=== PATIENT | female | born 1955 ===

== ENCOUNTER 2017-07-21 13:08 | Emergency (ER) | payer OTHER ==
[2017-07-21 13:19] VITALS: BP 148/72; PULSE 92; RESP 16; TEMP 98.6; O2SAT 99
[2017-07-21 14:35] LABS: SQUAMOUS EPITHIAL 1 /hpf (0-5); URINE BILIRUBIN NEGATIVE (NEGATIVE); URINE BLOOD NEGATIVE (NEGATIVE); URINE CLARITY CLEAR (Clear); URINE COLOR YELLOW (YELLOW); URINE GLUCOSE (UA) NEG (Normal); URINE LEUKOCYTE ESTERASE NEG Leu/uL (Negative); URINE NITRATE NEGATIVE (NEGATIVE); URINE PROTEIN NEGATIVE (NEGATIVE); URINE UROBILINOGEN 0.2-1.0 mg/dL (0.2-1.0)
--- NOTE | 2017-07-21 14:52 | ED PDOC ---
HPI: General Adult Time Seen by Provider: 07/21/17 13:28 Chief Complaint (Nursing): Flu-like Symptoms Chief Complaint (Provider): Flu-like Symptoms History Per: Patient History/Exam Limitations: no limitations Onset/Duration Of Symptoms: Days (x2 weeks) Current Symptoms Are (Timing): Still Present Additional Complaint(s): 62 year old female a past medical history of HTN and hypothyroidism, who presents to the ED with an influenza-like illness x2 weeks. Patient states she developed a cough with phlegm, mild rhinorrhea, chills and body aches 2 weeks ago. States her symptoms persistent and yesterday she had 2 episodes of non- bilious, non-bloody vomiting and 1 episode of diarrhea. Also reports 1 episode of vomiting this morning, but she has tolerated PO since. States she has only taken OTC cough medication for her symptoms. Says that 4 days prior to the onset of her symptoms she arrived here from the [facility]. PMD: None in the [place] Past Medical History Reviewed: Historical Data, Nursing Documentation, Vital Signs Vital Signs: Last Vital Signs Temp 98.6 F 07/21/17 13:16 Pulse 92 H 07/21/17 13:16 Resp 16 07/21/17 13:16 BP 148/72 07/21/17 13:16 Pulse Ox 99 07/21/17 15:17 - Medical History PMH: HTN, Hypothyroidism - Surgical History Surgical History: (x2) - Family History Family History: States: Hypertension - Social History Current smoker - smoking cessation education provided: No Alcohol: None Drugs: Denies - Home Medications Home Medications: Ambulatory Orders Medication Instructions Recorded Ondansetron ODT [Zofran ODT] 1 odt PO Q6 PRN #20 odt 07/21/17 Promethazine DM [Phenergan DM 10 ml PO Q6 PRN #120 ml 07/21/17 Syrup] - Allergies Allergies/Adverse Reactions: Allergies Allergy/AdvReac Type Severity Reaction Status Date / Time No Known Allergies Allergy Verified 07/21/17 13:16 Review of Systems ROS Statement: Except As Marked, All Systems Reviewed And Found Negative Constitutional: Positive for: Chills, Other (body aches) ENT: Positive for: Nose Discharge Respiratory: Positive for: Cough, Sputum Gastrointestinal: Positive for: Vomiting, Diarrhea Physical Exam - Reviewed Nursing Documentation Reviewed: Yes Vital Signs Reviewed: Yes - Physical Exam Appears: Positive for: Non-toxic, No Acute Distress Head Exam: Positive for: ATRAUMATIC, NORMOCEPHALIC Skin: Positive for: Warm, Dry Eye Exam: Positive for: EOMI, PERRL ENT: Negative for: Pharyngeal Erythema, Tonsillar Exudate, Tonsillar Swelling Neck: Positive for: Painless ROM, Supple Cardiovascular/Chest: Positive for: Regular Rate, Rhythm. Negative for: Murmur Respiratory: Positive for: Normal Breath Sounds. Negative for: Accessory Muscle Use, Rales, Wheezing, Respiratory Distress Gastrointestinal/Abdominal: Positive for: Soft. Negative for: Tenderness Back: Positive for: Normal Inspection. Negative for: Decreased ROM Extremity: Positive for: Normal ROM. Negative for: Pedal Edema, Deformity Lymphatic: Negative for: Adenopathy (cervical) Neurologic/Psych: Positive for: Alert. Negative for: Motor/Sensory Deficits - ECG O2 Sat by Pulse Oximetry: 99 (RA) Pulse Ox Interpretation: Normal Medical Decision Making Medical Decision Making: Time: 13:51 Initial Impression: Viral syndrome. Differential diagnoses include, but are not limited to influenza, pneumonia, and gastroenteritis. Patient has normal vitals and is not in acute distress. Initial Plan: --ED Urine dipstick --CXR 2 views --Urine culture --Influenza A B --Urinalysis CXR and labs unremarkable. Stable for dc. DW pt findings and plan of care. Scribe Attestation: Documented by Amor Sena, acting as a scribe for Emily Colmenares MD. Provider Scribe Attestation: All medical record entries made by the Scribe were at my direction and personally dictated by me. I have reviewed the chart and agree that the record accurately reflects my personal performance of the history, physical exam, medical decision making, and the department course for this patient. I have also personally directed, reviewed, and agree with the discharge instructions and disposition. Disposition - Clinical Impression Clinical Impression: Influenza-like symptoms - Disposition Referrals: [facility] [Outside] ([facility] EN 2-3 LARA A [facility] DE NUEVO) Disposition: Routine/Home Disposition Time: 15:00 Condition: STABLE Additional Instructions: [facility]ITA [facility] EN 2-3 LARA A CHEQAR DE NUEVO RE[facility] SI [facility] Prescriptions: Ondansetron ODT [Zofran ODT] 1 odt PO Q6 PRN #20 odt PRN Reason: Nausea/Vomiting Promethazine DM [Phenergan DM Syrup] 10 ml PO Q6 PRN #120 ml PRN Reason: cough Instructions: Viral Syndrome (ED) Forms: [facility] (Sinhala) Print Language: POLISH
--- NOTE | 2017-07-21 16:09 | RAD ---
HISTORY: cough COMPARISON: No prior. TECHNIQUE: Chest PA and lateral FINDINGS: LUNGS: No active pulmonary disease. PLEURA: No significant pleural effusion identified. No pneumothorax apparent. CARDIOVASCULAR: Normal. OSSEOUS STRUCTURES: No significant abnormalities. VISUALIZED UPPER ABDOMEN: Normal. OTHER FINDINGS: None. IMPRESSION: No radiographic evidence of pneumonia.
== END 2017-07-21 15:27 | disposition home or self-care (01) ==
LOC: H.ER 13:08
DX: J11.1 Influenza due to unidentified influenza virus with other respiratory manifestations (principal); I10 Essential (primary) hypertension; E03.9 Hypothyroidism, unspecified